=== PATIENT | male | born 1950 | race Caucasian/White ===

== ENCOUNTER → 2017-04-21 | Outpatient (CLI) | payer BC ==
[~2017-04-21] MED LIST: ASPEC325 PO; ASPI81TA28 PO; ATOR10TA82 PO; ATV/1 PO; ATV1 PO; CLB/200 PO; CLC100 PO; FEXO1TAB58 PO; MELO7.5T5 PO; METO-217 PO; MORP15TA19 PO; OXYC-57 PO; RXC5 PO; TIMO0.5S2 OP; [UNRECOGNIZED DRUG - OTHER] OPB
== END | disposition home or self-care (01) ==
LOC: C.RDSM 12:47
PROVIDERS: ATTEND Orthopaedic Surgery
DX: M25.551 Pain in right hip (principal)

== ENCOUNTER → 2017-09-03 | Outpatient (CLI) | payer BC ==
[~2017-09-03] MED LIST changes: -CLB/200 PO; -RXC5 PO
--- NOTE | 2017-09-03 14:13 | DIAGNOSTIC IMAGING REPORT ---
PELVIS 1 OR 2 VIEWS CLINICAL HISTORY: 66 years-old Male presenting with PRE OP TESTING. TECHNIQUE: Single frontal view of the pelvis was obtained. COMPARISON: None. FINDINGS/IMPRESSION: Radiodense device projects over the scrotum and pubic symphysis. Moderate to severe joint space loss of the hips bilaterally with subchondral sclerosis, osteophytosis, and minimal deformity of the femoral heads. Bony pelvis intact. Femoral necks intact. Electronically signed by: Mehran Kearney M.D. 09/03/2017 2:12 PM Dictated Date/Time: 09/03/2017 2:10 PM
== END | disposition home or self-care (01) ==
LOC: C.RDSM 14:00
PROVIDERS: ATTEND Physician Assistant
DX: Z01.818 Encounter for other preprocedural examination (principal)

== ENCOUNTER → 2017-11-23 | Outpatient (CLI) | payer BC ==
[~2017-11-23] MED LIST changes: -ASPEC325 PO; -ASPI81TA28 PO; -ATOR10TA82 PO; -ATV1 PO; +CLB/200 PO; -CLC100 PO; -MELO7.5T5 PO; -METO-217 PO; -MORP15TA19 PO; -OXYC-57 PO; +RXC5 PO; -TIMO0.5S2 OP
== END | disposition home or self-care (01) ==
LOC: C.RDSM 11:07
PROVIDERS: ATTEND Orthopaedic Surgery
DX: Z98.890 Other specified postprocedural states (principal)

== ENCOUNTER 2018-09-29 07:38 | Inpatient (IN) ==
--- NOTE | 2018-09-01 13:59 | PAT Medication Instructions ---
Medication Instructions Date of Service September 01, 2018 Home Medications fexofenadine [Cecilia Allergy] 180 mg PO QAM meloxicam 15 mg PO Q4D multivitamin 1 cap PO QAM timolol 1 drp OPHTHALMIC (EYE) QAM ASK your surgeon for instructions meloxicam 15 mg PO Q4D DO NOT take the morning of surgery fexofenadine [Cecilia Allergy] 180 mg PO QAM multivitamin 1 cap PO QAM Take morning of surgery OTHERWISE NOTHING TO EAT OR DRINK AFTER MIDNIGHT: timolol 1 drp OPHTHALMIC (EYE) QAM Other Notes If you have any questions please call us at [phone] or [phone] or [phone] or [phone]
--- NOTE | 2018-09-02 14:09 | Anesthesiology Consultation ---
Date of Service September 02, 2018 Assessment & Plan (1) Encounter for pre-operative examination: PCP CLEARANCE (LOUISA) -- 09/02/18 -- medically cleared. Cardiology 08/23 office visit -- "...history of paroxysmal atrial fibrillation. He has done great since his ablation. He only has had 3 short bursts of PAF. He has not had any prolonged episodes. He is feeling great without any restrictions... Could take a dose of flecainide if he has an episode of A. fib last more than 5 minutes... Follow-up in 1 years time if he needs it." Chart Review Chart Review: Acceptable Risk for Surgery and Patient seen in Pre Admission Testing Teaching & Discussion Instructed NPO after midnight before surgery, except medications with 15 cc of water. Medication instructions provided according to the PAT guidelines. History Surgery Operation Date: 09/29/18 08:15 Proposed Procedures p Right Total Hip Arthroplasty - Mehran Carvajal MD Height/Weight Height: 6 ft Weight: 91.5 kg Allergies Allergy/AdvReac Type Severity Reaction Status Date / Time No Known Allergies Allergy Verified 08/26/18 08:59 Medications Home Medications Medication Instructions Recorded Confirmed Last Taken fexofenadine [Cecilia Allergy] 180 mg PO QAM 08/26/18 08/26/18 Unknown lorazepam 1 mg PO HS 08/26/18 08/26/18 Unknown meloxicam 15 mg PO Q4D 08/26/18 08/26/18 Unknown multivitamin 1 cap PO QAM 08/26/18 08/26/18 Unknown timolol 1 drp OPHTHALMIC (EYE) QAM 08/26/18 08/26/18 Unknown Past Medical History Medical History Atrial fibrillation HX OF A-FIB, PT HAD A CRYOABLATION 2 YEARS AGO, [facility] History of skin cancer in adulthood S/P MOHS PROCEDURE. NO ISSUES SINCE Osteoarthritis Exercise / Class Metabolic Activity II 4-5 Yardwork/Stairs/Walk up hill (Denies CP or SOB with yardwork/stairs) Past Surgical History Surgical History Fusion of spine LUMBAR History of Mohs micrographic surgery for skin cancer History of appendectomy History of cardiac radiofrequency ablation History of cataract extraction with lens replacement B/L History of total hip arthroplasty LEFT HIP, [facility], 2018 History of total knee replacement B/L History of vitrectomy HX OF DETACHED RETINA Hx of eye surgery HX OF LASER EYE SURGERY KERATOTOMY Past Anesthesia History No Hx of Anesthesia Complications SISTER PONV S/P DAVID 09/2017: SAB SUCCESSFUL AT L2-L3 x 1 attempt History of PONV No Hx of PONV and No Hx of Motion Sickness Social History Smoking Status: Never smoker Smoking cigarettes per day: 0 Do You Dip or Chew Tobacco: No Hx Alcohol Use: Yes Alcohol Intake Frequency Comment: VERY RARE Hx Substance Use: No substance use type: does not use Review of Systems Pt denies any recent chest pain, shortness of breath, palpitations, cough, fever or URI. Physical Exam Vital Signs BP: 113/78 P: 81bpm SPO2: 96% RA T: 97.6 F R: 16 ENMT Mouth: + dental restorations (caps on front upper incisors) and + chipped teeth (minor chips in lower incisors); no loose teeth Thyromental Distance: > or= 3.5 Finger Breadths (3.5) Mallampati Class: I Neck normal visual inspection and + facial hair (short trimmed mustache); neck exte nsion not limited Respiratory normal respiratory effort Auscultation: lungs clear to auscultation bilaterally Cardiovascular Rate/Rhythm: regular rate and regular rhythm Heart Sounds: no murmur Vessels: no carotid bruit Extremities: no edema Testing Electrocardiogram Date: 09/02/18 Findings: + NSR @ (73) Laboratory Results 09/02/18 14:25 09/02/18 14:25 PT 10.9 Seconds (9.0-12.0) 09/02/18 14:25 INR 1.1 (0.9-1.1) 09/02/18 14:25 APTT 26.9 Seconds (21.0-31.0) 09/02/18 14:25 5.4 % (4.5-5.6) 09/02/18 14:25 Yellow 09/02/18 14:25 Clear (Clear) 09/02/18 14:25 6.5 (4.5-7.5) 09/02/18 14:25 Ur Specific [place] 1.017 (1.000-1.030) 09/02/18 14:25 Negative (Negative) 09/02/18 14:25 Negative (Negative) 09/02/18 14:25 Negative (Negative) 09/02/18 14:25 Negative (Negative) 09/02/18 14:25 Ur Leukocyte Esterase Negative (Negative) 09/02/18 14:25 Blood Type O Positive 09/02/18 14:25 Antibody Screen NEGATIVE 09/02/18 14:25 09/02/18 14:25 Urine Culture - Final Urine,Clean Catch No growth - less than 1,000 colonies/mL.
[2018-09-02 15:26] LABS: Appearance Urine Clear (Clear); Basophils # (auto) 0.02 K/uL (0-0.2); Basophils % (auto) 0.4 %; Bilirubin Urine Negative (Negative); Blood Urine Negative (Negative); Color Urine Yellow; Eosinophils % (auto) 3.6 %; Glucose Urine UA Negative (Negative); Hematocrit (blood only) 42.3 % (42-52); Hemoglobin 15.6 g/dL (14.0-18.0); Ketones Urine Negative (Negative); Leukocyte Esterase Urine Negative (Negative); Lymphocytes # (auto) 1.52 K/uL (1.2-3.4); Lymphocytes % (auto) 27.4 %; Mean Corpuscular Hgb Conc 36.9 g/dL (32-36); Mean Corpuscular Volume 87.4 fL (80-100); Mean Platelet Volume 11.1 fL (7.4-10.4); Monocytes % (auto) 10.8 %; Neutrophils # (auto) 3.21 K/uL (1.4-6.5); Neutrophils % (auto) 57.8 %; Nitrite Urine Negative (Negative); Platelet Count 184 K/uL (130-400); Protein Urine Negative (Negative); RDW Coefficient of Variation 12.8 % (11.5-14.5); RDW Standard Deviation 41.2 fL (36.4-46.3); Red Blood Count 4.84 M/uL (4.7-6.1); Specific Gravity Urine 1.017 (1.000-1.030); Urobilinogen Urine Negative (Negative); White Blood Count 5.55 K/uL (4.8-10.8); pH Urine 6.5 (4.5-7.5)
[2018-09-02 15:35] LABS: Albumin Level 3.6 gm/dl (3.4-5.0); BUN Creatinine Ratio 15.2 (10-20); Calcium 8.8 mg/dl (8.5-10.1); Creatinine Clr Calc Pharmacy 76.3 ml/min; Est GFR (African American) 84.9; Est GFR (Non-African American) 73.3; Potassium 4.2 mmol/L (3.5-5.1)
[2018-09-02 15:38] LABS: Albumin Globulin Ratio 1.1 (0.9-2); Bilirubin,Total 0.5 mg/dl (0.2-1); Globulin 3.3 gm/dl (2.5-4.0); Total Protein 6.9 gm/dl (6.4-8.2)
[2018-09-02 15:48] LABS: INR 1.1 (0.9-1.1); Partial Thromboplastin Time 26.9 Seconds (21.0-31.0); Prothrombin Time 10.9 Seconds (9.0-12.0)
--- NOTE | 2018-09-02 16:59 | History & Physical Report ---
Date of Service September 02, 2018 Assessment & Plan (1) Arthritis of right hip: DIAGNOSES: Right hip osteoarthritis. PROCEDURE: Right total hip arthroplasty. PLAN: The patient is scheduled to undergo this procedure with Dr. Mehran Carvajal at the [facility] as an inpatient on 09/29/18. Risks and complications of the procedure such as infection, bleeding, pain, scarring, nerve and blood vessel damage, weakness, wound problems, stiffness, incomplete relief of symptoms, heart attack, stroke, , hardware failure, loosening, wear, fracture, dislocation, leg length inequality, blood clots and embolism were explained to the patient at his visit this afternoon by Dr. Edmundo capone and informed consent to perform the procedure was obtained. We have already received cardiac clearance from the patient's mica miner. We will fax the medical clearance form to his PCP, Dr. Vincent Edwards for clearance for the surgery. The patient states that he saw his PCP 2 weeks ago. We have an up to date EKG; however, we will need a nasal swab cultured for MRSA, hemoglobin A1c, urinalysis with culture, PTT, PT/INR, CBC with diff and a comprehensive metabolic panel. The patient states that he will receive these in the next few days and have them sent to our office. The patient will be scheduled for a postoperative followup with myself on October 14. I advised him that we will provide him with a prescription for a narcotic pain medication as well as some diclofenac sodium for pain control after the surgery before being discharged. He states that he will purchase his own extra strength Tylenol and we will resume his normal daily aspirin; however, we will have him take it twice daily for DVT prophylaxis. The patient states that he has a walker at home from his previous surgeries and will bring it with him on the day of surgery. I provided him with a handicap placard to use for 6 months postoperatively. I instructed him about the use of antibiotics for dental procedures after total joint arthroplasty. I gave him some information on lectures in regards to hip and knee replacements the [facility] offers on the and Wednesday of every month. He states that he has all the equipment that comes with a hip kit from his previous hip and knee surgeries at home and will use them as instructed. The patient states that most likely he will do home health at his home for 2 weeks and then transition to outpatient physical therapy but will s peak with socially responsible investment adviser after the procedure and depending on how well he does in physical therapy while inpatient, he may consider just doing outpatient physical therapy. The patient and his verbalized understanding of all information provided during today's visit, thanks for the care that they have received and states if they have questions or concerns that should arise prior to the surgery date, they will contact the clinic accordingly. History of Present Illness Chief Complaint: CHIEF COMPLAINT: Right hip pain Primary Care Provider: Vincent Edwards HISTORY OF PRESENT ILLNESS: This 66-year-old male presents to the clinic today for his preoperative history and physical. The patient has a several-year history of bilateral hip pain which was more severe in his left hip until having a Left DAVID last September. The patient describes the Right hip pain as a sharp pain with intermittent radiation. He localizes the pain to the anterior lateral aspect of the right hip. He states that it increases with activity. He has received no relief with conservative treatment. He walks with an antalgic gait. PAST SURGICAL HISTORY: Bilateral total knee arthroplasty, Left total hip arthroplasty, lower lumbar fusion, vasectomy, appendectomy, cardiac ablation, lithotripsy, bilateral cataract removal, colonoscopy. PAST MEDICAL HISTORY: Renal calculi, anxiety, insomnia, heart disease, atrial fibrillation, myocardial infarction, cancer. FAMILY HISTORY: Heart disease, cancer, hyperlipidemia. ALLERGIES: The patient has no known drug allergies. CURRENT MEDICATIONS USED: Cecilia OTC 1 tab daily as needed, aspirin 81 mg oral tablet 1 tab daily, lorazepam 1 mg oral tablet daily, meloxicam 15 mg oral tablet every 3-4 days, and timolol eye drops, unknown dosage 1-2 drops into both eyes daily. SOCIAL HISTORY: The patient denies any history of smoking, alcohol or illicit drug use. Allergies Allergy/AdvReac Type Severity Reaction Status Date / Time No Known Allergies Allergy Verified 08/26/18 08:59 Home Medications Home Medications Medication Instructions Recorded Confirmed Type fexofenadine [Cecilia Allergy] 180 mg PO QAM 08/26/18 08/26/18 History lorazepam 1 mg PO HS 08/26/18 08/26/18 History meloxicam 15 mg PO Q4D 08/26/18 08/26/18 History multivitamin 1 cap PO QAM 08/26/18 08/26/18 History timolol 1 drp OPHTHALMIC (EYE) QAM 08/26/18 08/26/18 History Past Med/Surg History Medical History Atrial fibrillation HX OF A-FIB, PT HAD A CRYOABLATION 2 YEARS AGO, [facility] History of skin cancer in adulthood S/P MOHS PROCEDURE. NO ISSUES SINCE Osteoarthritis Surgical History Fusion of spine LUMBAR History of Mohs micrographic surgery for skin cancer History of appendectomy History of cardiac radiofrequency ablation History of cataract extraction with lens replacement B/L History of total hip arthroplasty LEFT HIP, [facility], 2018 History of total knee replacement B/L History of vitrectomy HX OF DETACHED RETINA Hx of eye surgery HX OF LASER EYE SURGERY KERATOTOMY Social History Preferred Language: Kyrgyz Communication Ability: Effective Supervisor Audit Clerks Required: No Beliefs That Will Affect Care: None Current Living Situation: Spouse Other Information That Helps Us Care for You: No Feels Safe at Home: Yes Safety Concerns: Feels Safe At This Time Smoking Status: Never smoker Cigarettes Per Day: 0 Do You Dip or Chew Tobacco: No Second Hand Exposure: No Tobacco Cessation Education Requested by Patient: No Hx Alcohol Use: Yes Hx Substance Use: No Review of Systems All systems reviewed & are unremarkable except as noted in HPI & below Physical Exam Vital Signs (Past 24 Hours): PHYSICAL EXAMINATION: Skin: The patient's skin is normal in appearance, no open skin lesions or discharge. Eyes: Pupils are equal and reactive to light and accommodation, extraocular movements are intact. Throat: Posterior oropharynx is clear with absence of edema, erythema or exudate. Cardiovascular exam: The patient has regular rate and rhythm, no murmurs or gallops appreciated. Lungs: Auscultation of lung orellana reveals clear breath sounds throughout with no wheezing, rales or rhonchi. Abdomen is nonobese, nondistended, nontender with normoactive bowel sounds. Extremities: Right hip, the patient is able to perform straight leg raise test without any pain. Log roll test is negative. Stinchfield test is negative. The patient does experience some referred pain to the anterolateral aspect of the right hip with active abduction. He has no pain with adduction. Only minimal pain with internal rotation. No pain with external rotation. DAVID test is 2-1/2 fists. The patient is neurovascularly intact in right lower extremity. He has full range of motion of his right knee. His calf is soft and supple, nontender to palpation. Neurological exam: Cranial nerves 2 through 12 are intact. No motor or sensory deficit. Psychological/general exam: The patient is alert and oriented x3 with proper grooming and hygiene. Results & Data Laboratory Results 09/02/18 09/02/18 09/02/18 Range/Units 14:25 14:25 14:25 WBC (4.8-10.8) K/uL RBC (4.7-6.1) M/uL Hgb (14.0-18.0) g/dL Hct (42-52) % MCV (80-100) fL MCH (25-34) pg MCHC (32-36) g/dL RDW Std Deviation (36.4-46.3) fL RDW Coeff of Harish (11.5-14.5) % Plt Count (130-400) K/uL MPV (7.4-10.4) fL Immature Gran % (Auto) % Neut % (Auto) % Lymph % (Auto) % Miner % (Auto) % Eos % (Auto) % Baso % (Auto) % Immature Gran # (Auto) (0.00-0.02) K/uL Neut # (Auto) (1.4-6.5) K/uL Lymph # (Auto) (1.2-3.4) K/uL Miner # (Auto) (0.11-0.59) K/uL Eos # (Auto) (0-0.5) K/uL Baso # (Auto) (0-0.2) K/uL PT (9.0-12.0) Seconds INR (0.9-1.1) APTT (21.0-31.0) Seconds PTT Ratio Sodium (136-145) mmol/L Potassium (3.5-5.1) mmol/L Chloride (98-107) mmol/L Carbon Dioxide (21-32) mmol/L Anion Gap (3-11) BUN (7-18) mg/dl Creatinine (0.6-1.4) mg/dl Est Cr Clr Drug Dosing ml/min Est GFR ( Amer) Est GFR (Non-Af Amer) BUN/Creatinine Ratio (10-20) Glucose (70-99) mg/dl Estimat Average Glucose Hemoglobin A1c Calcium (8.5-10.1) mg/dl Total Bilirubin (0.2-1) mg/dl AST (15-37) U/L ALT (12-78) U/L Alkaline Phosphatase (45-117) U/L Total Protein (6.4-8.2) gm/dl Albumin (3.4-5.0) gm/dl Globulin (2.5-4.0) gm/dl Albumin/Globulin Ratio (0.9-2) Urine Color Yellow Urine Appearance Clear (Clear) Urine pH 6.5 (4.5-7.5) Ur Specific [place] 1.017 (1.000-1.030) Urine Protein Negative (Negative) Urine Glucose (UA) Negative (Negative) Urine Ketones Negative (Negative) Urine Blood Negative (Negative) Urine Nitrite Negative (Negative) Urine Bilirubin Negative (Negative) Urine Urobilinogen Negative (Negative) Ur Leukocyte Esterase Negative (Negative) Nasal Screen MRSA (PCR) Negative (Negative) Blood Type Pending Antibody Screen Pending 09/02/18 09/02/18 09/02/18 Range/Units 14:25 14:25 14:25 WBC (4.8-10.8) K/uL RBC (4.7-6.1) M/uL Hgb (14.0-18.0) g/dL Hct (42-52) % MCV (80-100) fL MCH (25-34) pg MCHC (32-36) g/dL RDW Std Deviation (36.4-46.3) fL RDW Coeff of Harish (11.5-14.5) % Plt Count (130-400) K/uL MPV (7.4-10.4) fL Immature Gran % (Auto) % Neut % (Auto) % Lymph % (Auto) % Miner % (Auto) % Eos % (Auto) % Baso % (Auto) % Immature Gran # (Auto) (0.00-0.02) K/uL Neut # (Auto) (1.4-6.5) K/uL Lymph # (Auto) (1.2-3.4) K/uL Miner # (Auto) (0.11-0.59) K/uL Eos # (Auto) (0-0.5) K/uL Baso # (Auto) (0-0.2) K/uL PT 10.9 (9.0-12.0) Seconds INR 1.1 (0.9-1.1) APTT 26.9 (21.0-31.0) Seconds PTT Ratio 1.0 Sodium 138 (136-145) mmol/L Potassium 4.2 (3.5-5.1) mmol/L Chloride 107 (98-107) mmol/L Carbon Dioxide 28 (21-32) mmol/L Anion Gap 3.0 (3-11) BUN 16 (7-18) mg/dl Creatinine 1.06 (0.6-1.4) mg/dl Est Cr Clr Drug Dosing 76.3 ml/min Est GFR ( Amer) 84.9 Est GFR (Non-Af Amer) 73.3 BUN/Creatinine Ratio 15.2 (10-20) Glucose 88 (70-99) mg/dl Estimat Average Glucose Pending Hemoglobin A1c Pending Calcium 8.8 (8.5-10.1) mg/dl Total Bilirubin 0.5 (0.2-1) mg/dl AST 20 (15-37) U/L ALT 28 (12-78) U/L Alkaline Phosphatase 104 (45-117) U/L Total Protein 6.9 (6.4-8.2) gm/dl Albumin 3.6 (3.4-5.0) gm/dl Globulin 3.3 (2.5-4.0) gm/dl Albumin/Globulin Ratio 1.1 (0.9-2) Urine Color Urine Appearance (Clear) Urine pH (4.5-7.5) Ur Specific [place] (1.000-1.030) Urine Protein (Negative) Urine Glucose (UA) (Negative) Urine Ketones (Negative) Urine Blood (Negative) Urine Nitrite (Negative) Urine Bilirubin (Negative) Urine Urobilinogen (Negative) Ur Leukocyte Esterase (Negative) Nasal Screen MRSA (PCR) (Negative) Blood Type Antibody Screen 09/02/18 Range/Units 14:25 WBC 5.55 (4.8-10.8) K/uL RBC 4.84 (4.7-6.1) M/uL Hgb 15.6 (14.0-18.0) g/dL Hct 42.3 (42-52) % MCV 87.4 (80-100) fL MCH 32.2 (25-34) pg MCHC 36.9 H (32-36) g/dL RDW Std Deviation 41.2 (36.4-46.3) fL RDW Coeff of Harish 12.8 (11.5-14.5) % Plt Count 184 (130-400) K/uL MPV 11.1 H (7.4-10.4) fL Immature Gran % (Auto) 0.0 % Neut % (Auto) 57.8 % Lymph % (Auto) 27.4 % Miner % (Auto) 10.8 % Eos % (Auto) 3.6 % Baso % (Auto) 0.4 % Immature Gran # (Auto) 0.00 (0.00-0.02) K/uL Neut # (Auto) 3.21 (1.4-6.5) K/uL Lymph # (Auto) 1.52 (1.2-3.4) K/uL Miner # (Auto) 0.60 H (0.11-0.59) K/uL Eos # (Auto) 0.20 (0-0.5) K/uL Baso # (Auto) 0.02 (0-0.2) K/uL PT (9.0-12.0) Seconds INR (0.9-1.1) APTT (21.0-31.0) Seconds PTT Ratio Sodium (136-145) mmol/L Potassium (3.5-5.1) mmol/L Chloride (98-107) mmol/L Carbon Dioxide (21-32) mmol/L Anion Gap (3-11) BUN (7-18) mg/dl Creatinine (0.6-1.4) mg/dl Est Cr Clr Drug Dosing ml/min Est GFR ( Amer) Est GFR (Non-Af Amer) BUN/Creatinine Ratio (10-20) Glucose (70-99) mg/dl Estimat Average Glucose Hemoglobin A1c Calcium (8.5-10.1) mg/dl Total Bilirubin (0.2-1) mg/dl AST (15-37) U/L ALT (12-78) U/L Alkaline Phosphatase (45-117) U/L Total Protein (6.4-8.2) gm/dl Albumin (3.4-5.0) gm/dl Globulin (2.5-4.0) gm/dl Albumin/Globulin Ratio (0.9-2) Urine Color Urine Appearance (Clear) Urine pH (4.5-7.5) Ur Specific [place] (1.000-1.030) Urine Protein (Negative) Urine Glucose (UA) (Negative) Urine Ketones (Negative) Urine Blood (Negative) Urine Nitrite (Negative) Urine Bilirubin (Negative) Urine Urobilinogen (Negative) Ur Leukocyte Esterase (Negative) Nasal Screen MRSA (PCR) (Negative) Blood Type Antibody Screen
[2018-09-03 05:47] LABS: Estimated Average Glucose 108 mg/dl; Hemoglobin A1C 5.4 % (4.5-5.6)
[~2018-09-29 07:38] MED LIST changes: +ACETAMINOPHEN 500 MG TAB PO SCH; -ATV/1 PO; +BUPIVACAINE 0.5 % 5 MG/1 ML PF 10ML VIAL ONE; +CEFAZOLIN 2000MG 2,000 MG/15 ML SYR IV SCH; -CLB/200 PO; +CeleBREX 200 MG CAP PO SCH; +FAMOTIDINE 20 MG TAB PO SCH; -FEXO1TAB58 PO; +LR 500ML BOLUS, THEN 15ML/HR IV SCH; +LR 60ML/HR IV SCH; +METOCLOPRAMIDE HCL 10 MG TABLET PO SCH; +ROPIVACAINE 0.5% HCL/PF 150 MG, BUPIVACAINE 0.5% MPF 30 ML, EPINEPHrine 0.15 MG, Ketoro... INFIL SCH; -RXC5 PO; +SCOPOLAMINE 1.5 MG TDSY TD SCH; +TRAMADOL HCL 50 MG TABLET PO SCH; +TRANEXAMIC ACID 1,000 MG x 1 **For Topical Use TOP SCH; -[UNRECOGNIZED DRUG - OTHER] OPB; +dexAMETHasone 4 MG TAB PO SCH
[2018-09-29] MEDS ORDERED: MIDAZOLAM HCL 1 MG/ML 2ML VIAL ONE (09:42)
[2018-09-29] MEDS ORDERED: KETAMINE HCL INJ 50 MG/ML 10 ML VIAL ONE (09:43)
[2018-09-29] MEDS ORDERED: LIDOCAINE HCL 2% 2 ML VIAL/AMP(20MG/ML) INFIL ONE (09:57)
[2018-09-29] MEDS ORDERED: DEXAMETHASONE SOD INJ 4 MG/ML VIAL ONE (09:57)
[2018-09-29] MEDS ORDERED: PROPOFOL IV EMULSION 10 MG/ML 20 ML VIAL IV ONE (09:57)
[2018-09-29] MEDS ORDERED: ONDANSETRON INJ 2 MG/ML 2 ML VIAL ONE (09:57)
[2018-09-29] MEDS ORDERED: GLYCOPYRROLATE 0.2 MG/ML VIAL ONE (09:57)
--- NOTE | 2018-09-29 10:04 | History & Physical Bridge Note ---
Date of Service September 29, 2018 History & Physical Bridge Note I have examined the patient, reviewed the History & Physical and in the interval since the performance of the History & Physical I have noted the following changes of clinical significance: no changes noted
[2018-09-29] MEDS ORDERED: ORTHO JOINT ANESTHETIC ONE (10:08)
[2018-09-29] MEDS ORDERED: POVIDONE-IODINE OP SOLN 30 ML BTL ONE (10:08)
[2018-09-29] MEDS ORDERED: FLUMAZENIL 0.1 MG/1 ML 10 ML VIAL IV PRN (11:32)
[2018-09-29] MEDS ORDERED: ATROPINE SULFATE 0.1 MG/ML 10ML SYR IV PRN (11:32)
[2018-09-29] MEDS ORDERED: PROMETHAZINE HCL 12.5 MG in SODIUM CHLORIDE 0.9% 50 ML IV PRN (11:32)
[2018-09-29] MEDS ORDERED: ePHEDrine sulfate 50 MG/ML AMP IV PRN (11:32)
[2018-09-29] MEDS ORDERED: ONDANSETRON INJ 2 MG/ML 2 ML VIAL IV PRN ×2 (11:32→12:14)
[2018-09-29] MEDS ORDERED: NALOXONE HCL 0.4 MG/1 ML VIAL/CARP IV PRN ×2 (11:32→12:14)
[2018-09-29] MEDS ORDERED: HYDROmorphone INJ 1 MG/ML SYRINGE IV PRN (11:32)
[2018-09-29] MEDS ORDERED: PHENYLEPHRINE 100MCG/ML 5ML SYR ONE (12:00)
--- NOTE | 2018-09-29 12:01 | Post Operative Brief Note ---
Immediate Post Op Note v1 Date of Surgery September 29, 2018 Pre & Post Diagnosis Operation Date: 09/29/18 10:15 Pre-Op Diagnosis: Right Hip Osteoarthritis Post-Op Diagnosis: Right Hip Osteoarthritis Procedure Operation Date: 09/29/18 10:15 Actual Procedures p Right Total Hip Arthroplasty(Right) - Mehran Carvajal MD Surgeon Mehran Carvajal MD Corner Former WILLI Elliott PA-C Estimated Blood Loss 100 Findings Consistent with Post-Op Diagnosis Fluids 1700 cc Specimens Femoral head Anesthesia Type Spinal MAC Complications none Disposition Accompanied Patient To Recovery: No Disposition: Recovery Room
[2018-09-29] MEDS ORDERED: TAMSULOSIN HCL 0.4 MG CAP PO PRN (12:14)
[2018-09-29] MEDS ORDERED: ALUMINUM/MAGNESIUM SUSP 30 ML UDC PO PRN (12:14)
[2018-09-29] MEDS ORDERED: DiphenhydrAMINE HCL 50 MG/ML VIAL IV PRN (12:14)
[2018-09-29] MEDS ORDERED: MAGNESIUM HYDROXIDE SUSP 30 ML UDC PO PRN (12:14)
[2018-09-29] MEDS ORDERED: METOCLOPRAMIDE HCL INJ 5 MG/ML 2 ML VIAL IV PRN (12:14)
[2018-09-29] MEDS ORDERED: BISACODYL 10 MG SUPP PR PRN (12:14)
[2018-09-29] MEDS ORDERED: OXYCODONE HCL IR 5 MG TAB (IMMEDIATE RELEASE) PO PRN (12:14)
--- NOTE | 2018-09-29 12:14 | Operative Report ---
Post Operative Report Pre & Post Diagnosis Operation Date: 09/29/18 10:15 Pre-Op Diagnosis: Right Hip Osteoarthritis Post-Op Diagnosis: Right Hip Osteoarthritis Procedure Operation Date: 09/29/18 10:15 Actual Procedures p Right Total Hip Arthroplasty(Right) - Mehran Barrios MD Surgeon Mehran barrios MD Senior Environmental Scientist WILLI Elliott PA-C Estimated Blood Loss 100 Findings Consistent with Post-Op Diagnosis Specimens femoral head Complications none Disposition Accompanied Patient To Recovery: Yes Disposition: Recovery Room Description of Procedure I was present during the entire case assisting with wound closure and dressing application. Please see Dr. Barrios procedure note for specifics of the case. I attest to the content of the Intraoperative Record and any orders documented therein. Any exceptions are noted below.
--- NOTE | 2018-09-29 12:46 | XRay Report ---
AP PELVIS, CROSSTABLE LATERAL LEFT HIP History: Left total hip arthroplasty. Degenerative arthritis. Postop. FINDINGS: The patient is status post a left total hip arthroplasty. The hardware is intact. No fractu re or dislocation. Prior right total hip arthroplasty is noted. IMPRESSION: Left total hip arthroplasty. No evidence for hardware complication. Electronically signed by: Pedro Dempsey M.D. 09/29/2018 12:45 PM
--- NOTE | 2018-09-29 12:53 | Anesthesiology Progress Note ---
Date of Service September 29, 2018 Anesthesia Post Procedure Vital Signs Vital Signs: Temp Pulse Pulse Resp BP Pulse Ox 09/29/18 12:40 36.6 C 75 16 105/72 97 09/29/18 12:30 76 16 103/64 96 09/29/18 12:20 77 14 102/68 99 09/29/18 12:12 36.5 C 78 13 105/67 97 09/29/18 09:13 36.9 C 78 18 128/87 97 Pain Intensity Right Hip: Pain Intensity: 3 Transfer of Care Handoff Completed per policy Notes Mental Status: alert / awake / arousable Patient Amnestic to Procedure: Yes Nausea / Vomiting: adequately controlled Pain: adequately controlled Airway Patency, RR, SpO2: stable & adequate BP & HR: stable & adequate Hydration State: stable & adequate Neuraxial Anesthesia: was administered and sensory block is resolving Anesthetic Complications: no major complications apparent
[2018-09-29] MEDS: CHECK SCOPOLAMINE PATCH PLACEMENT SCH ×2 (13:28→13:30)
[2018-09-29] MEDS: SODIUM CHLORIDE 0.9% 1000ML 1,000 ML IV SCH (13:59)
[2018-09-29] MEDS: KETOROLAC TROMETHAMINE 15 MG/ML VIAL IV SCH ×2 (16:20→21:58)
[2018-09-29] MEDS: ACETAMINOPHEN 500 MG TAB PO SCH (16:20)
[2018-09-29] MEDS: CEFAZOLIN 2000MG 2,000 MG/15 ML SYR IV SCH (18:07)
[2018-09-29] MEDS ORDERED: SENNA 8.6 MG TAB PO SCH (21:00)
[2018-09-29] MEDS ORDERED: LORazepam 1 MG TAB PO SCH (21:00)
[2018-09-29] MEDS: DOCUSATE SODIUM 100 MG CAP PO SCH (21:32)
[2018-09-29] MEDS: ASPIRIN 81 MG ECTAB PO SCH (21:33)
--- NOTE | 2018-09-29 22:06 | Operative Report ---
DATE OF OPERATION: 09/29/2018 DATE OF SURGERY: 09/29/2018 PREOPERATIVE DIAGNOSIS: Right hip osteoarthritis. POSTOPERATIVE DIAGNOSIS: Right hip osteoarthritis. OPERATION PERFORMED: Right total hip arthroplasty. SURGEON: Mehran Carvajal MD RIP/MOULD OPERATOR: Katrin Elliott. ESTIMATED BLOOD LOSS: 100 mL. IV FLUIDS: 1700 mL crystalloid. SPECIMENS: Femoral head. COMPLICATIONS: None. IMPLANTS: 1. DePuy [place] size 7 high offset femoral stem. 2. DePuy Radnor Gription acetabular shell sector cup 60 mm outer diameter. 3. One 6.5 x 45 mm cancellous bone screw. 4. A 60 outer diameter and 36 mm inner diameter Ultrex polyethylene liner. 5. Biolox delta 36 mm +1.5 femoral head. INDICATIONS: Mr. Logan is a 68-year-old gentleman who is status post a left total hip arthroplasty with an excellent result. He has right hip osteoarthritis that has been refractory to conservative management. X-rays show bone on bone arthritis. I had a long discussion with him about the risks and benefits of surgery, alternatives to surgery and expected outcomes. After reviewing all these, he elected to proceed with surgery. All questions were answered. Informed consent was signed. OPERATIVE FINDINGS: Degenerative osteoarthritis of the right hip. A ceramic on polyethylene bearing was used with components almost exactly the same as his other side. DESCRIPTION OF OPERATION: The patient was identified in the preoperative holding area where surgical site was marked. He was given a spinal anesthetic and brought back to the main operating room where he was placed on the operating room table and moved in the lateral decubitus position. Axillary roll was placed. All bony prominences were padded. Perioperative antibiotics were administered. He was prepped and draped in normal sterile fashion. Prior to incision, a multidisciplinary timeout was called. All in the room were in agreement. We began by checking his leg lengths. He is just a little bit longer on the operative side compared with the other side. We then made a 14 cm long incision for a posterior approach of the hip. We dissected down through subcutaneous tissues to the level of fascia. The fascia was incised in line with the incision. Charnley bow was placed. Trochanteric bursa was excised. The quadratus femoris and short external rotators were dissected off the posterior aspect of the hip. We then made a box cut in the capsule. The femoral head was dislocated. The femoral neck cut was made at 10 mm, which was our preoperative template and what he had on his other side. The acetabulum was then exposed. The patient had significant medial osteophytes. We removed as much of the cotyloid fossa was visible to guide our reaming. We then began reaming with a size 52 mm reamer. This was used to medialize this cup. We then reamed up by twos up to a size 56. We then reamed by ones and got all the way to a size 60 at which point we had excellent cancellous bleeding bone peripherally. We then irrigated out the acetabulum. The 60 mm outer diameter Gription cup was opened up and was impacted into position with 25 degrees of anteversion and 45 degrees of lateral opening. Single cancellous screw was placed up into the ilium. Excellent fixation was obtained. Next, the posterior inferior osteophyte was excised using a rongeur and as well as osteotome and mallet. We then exposed the femoral neck. The anterior capsule was released off of the femoral neck cut. We then removed his lateral capsule as well. A cookie cutter was used to remove the lateral neck bone. The intramedullary guide was used followed by the lateralizing reamer. We reamed them up all the way to the size 7, which was the same size he had in his contralateral side. We then broached them all the way up to a size 7, which had excellent torsional stability and sat at the level of our femoral neck cut. Next, we began trialing. We initially trialled with a +5 head; however, this left his leg lengths a little bit longer on the right than the left. We then downsized him to a +1.5. He had symmetric leg lengths with this offset head as well as excellent stability with normal shuck test. No impingement in external rotation and extension, stable in the sleeper position and at 90 degrees of hip flexion, he could be internally rotated 35 degrees before leaving out of the socket. At this point, the hip was again dislocated and the trial components were removed. The real size 7 high offset [place] stem was opened up and was impacted down into position. It sat about 1 mm proud compared with the broach. Therefore, we opened up the +1.5 mm ceramic 36 mm outer diameter head. This was impacted on the trunnion, which had been cleaned and dried. We then atraumatically reduced the hip. We then began to close. Dilute Betadine solution was used to irrigate out the wound and sit for 3 minutes. We then injected our periarticular cocktail into the pericapsular tissues as well as into the subcutaneous tissues. The Betadine was removed and the hip was irrigated with normal saline. Tranexamic acid was used to coat the wound for postoperative hemostasis. We then closed the fascia with a running looped #1 PDS. Subcutaneous layer was closed with a running #1 PDS. The deep dermis was closed with 2-0 Vicryl. A ZipLine was used for the skin. Silverlon was placed for sterile dressing. The patient was then carefully moved on to the hospital bed. Sedation was lifted and he was transferred to the recovery room in stable condition. POSTOPERATIVE COURSE: The patient will be admitted overnight for pain control and monitoring. He will be on aspirin for DVT prophylaxis. He will follow posterior hip precautions. X-rays are pending in the recovery room. I attest to the content of the Intraoperative Record and any orders documented therein. Any exception s are noted below.
[2018-09-30] MEDS: ACETAMINOPHEN 500 MG TAB PO SCH ×2 (00:26→08:00)
[2018-09-30] MEDS: SODIUM CHLORIDE 0.9% 1000ML 1,000 ML IV SCH (01:11)
[2018-09-30] MEDS: CEFAZOLIN 2000MG 2,000 MG/15 ML SYR IV SCH (02:45)
[2018-09-30] MEDS: KETOROLAC TROMETHAMINE 15 MG/ML VIAL IV SCH ×2 (03:05→10:16)
[2018-09-30 06:12] LABS: Hematocrit (blood only) 37.2 % (42-52); Hemoglobin 12.9 g/dL (14.0-18.0); Immature Granulocytes # (auto) 0.03 K/uL (0.00-0.02); Immature Granulocytes % (auto) 0.2 %; Lymphocytes # (auto) 1.03 K/uL (1.2-3.4); Lymphocytes % (auto) 6.7 %; Mean Corpuscular Hgb Conc 34.7 g/dL (32-36); Mean Corpuscular Volume 87.3 fL (80-100); Mean Platelet Volume 10.7 fL (7.4-10.4); Monocytes # (auto) 1.02 K/uL (0.11-0.59); Monocytes % (auto) 6.6 %; Neutrophils # (auto) 13.38 K/uL (1.4-6.5); Neutrophils % (auto) 86.5 %; Platelet Count 153 K/uL (130-400); RDW Coefficient of Variation 12.6 % (11.5-14.5); RDW Standard Deviation 40.3 fL (36.4-46.3); Red Blood Count 4.26 M/uL (4.7-6.1); White Blood Count 15.46 K/uL (4.8-10.8)
[2018-09-30 06:52] LABS: Calcium 8.6 mg/dl (8.5-10.1); Creatinine Clr Calc Pharmacy 79.8 ml/min; Est GFR (African American) 90.5; Est GFR (Non-African American) 78.1
--- NOTE | 2018-09-30 07:51 | Anesthesiology Progress Note ---
Date of Service September 30, 2018 Anesthesia Post Procedure Vital Signs Vital Signs: Temp Pulse Pulse Resp BP Pulse Ox 09/30/18 06:57 36.4 C L 84 18 128/82 97 09/30/18 03:20 36.5 C 75 14 120/75 97 09/29/18 23:07 36.4 C L 82 14 104/66 97 09/29/18 21:31 100/62 09/29/18 19:36 36.5 C 81 16 100/63 98 09/29/18 16:06 36.4 C L 74 17 122/79 96 09/29/18 15:03 36.4 C L 77 17 161/95 H 98 09/29/18 14:00 36.4 C L 75 16 124/74 95 09/29/18 13:30 72 16 114/76 97 09/29/18 13:00 36.5 C 77 16 104/68 98 09/29/18 12:50 75 16 109/71 96 09/29/18 12:40 36.6 C 75 16 105/72 97 09/29/18 12:30 76 16 103/64 96 09/29/18 12:20 77 14 102/68 99 09/29/18 12:12 36.5 C 78 13 105/67 97 09/29/18 09:13 36.9 C 78 18 128/87 97 Pain Intensity Right Hip: Pain Intensity: 3 Notes Mental Status: alert / awake / arousable and participated in evaluation Patient Amnestic to Procedure: Yes Nausea / Vomiting: adequately controlled Pain: adequately controlled Airway Patency, RR, SpO2: stable & adequate BP & HR: stable & adequate Hydration State: stable & adequate Neuraxial Anesthesia: was administered and sensory block resolved Anesthetic Complications: no major complications apparent and Pt Satisfied with anesthetic care
[2018-09-30] MEDS ORDERED: dexAMETHasone 4 MG TAB PO SCH (08:00)
[2018-09-30] MEDS: ASPIRIN 81 MG ECTAB PO SCH (08:00)
[2018-09-30] MEDS: DOCUSATE SODIUM 100 MG CAP PO SCH (08:00)
[2018-09-30] MEDS ORDERED: FEXOFENADINE HCL 180 MG TAB PO SCH (09:00)
[2018-09-30] MEDS ORDERED: ASPIRIN 81 MG ECTAB PO SCH (09:00)
[2018-09-30] MEDS ORDERED: NON-FORMULARY MEDICATION (Multivitamin 1 CAP) PO SCH (09:00)
[2018-09-30] MEDS ORDERED: MULTIVITAMIN TAB PO SCH (09:00)
[2018-09-30] MEDS ORDERED: TIMOLOL MALEATE 0.5% OP SOLN 5 ML BTL OP SCH (09:00)
--- NOTE | 2018-09-30 11:03 | Orthopedic Progress Note ---
Date of Service September 30, 2018 Assessment & Plan (1) S/P total hip arthroplasty: Discharge home with in home therapy Total hip precautions Abductor pillow use x 6 wks Ice with EZ wrap DVT prophy with TEDs and Aspirin Pain control with PO meds WBAT with walker assistance F/u at [facility] as previously scheduled. Supervising Physician Co-Signing Physician Notes I saw and examined the patient. Agree with note. Subjective 68 yo M day 1 s/p Right total hip arthroplasty. Doing well. No problems with PT/OT this AM. Denies hip pain, CP, SOB, nausea, vomiting, fever, chills, sweats, or weakness. Ready to be discharged to home. Review of Systems Review of Systems: All systems reviewed & are unremarkable except as noted in HPI & below Physical Exam Physical Exam: Right hip: dressing has small amount of blood but otherwise dry and intact. Able to easily perform SLRT. No pain with light internal or external rotation. Able to depict light sensation to touch circumfrentially around dressing. Calf soft and supple. NV intact Results & Data Vital Signs (Past 12 Hours) Vital Signs Temp Pulse Resp BP Pulse Ox 09/30/18 06:57 36.4 C L 84 18 128/82 97 09/30/18 03:20 36.5 C 75 14 120/75 97 09/29/18 23:07 36.4 C L 82 14 104/66 97 Laboratory Results 09/30/18 09/30/18 Range/Units 05:51 05:51 WBC 15.46 H (4.8-10.8) K/uL RBC 4.26 L (4.7-6.1) M/uL Hgb 12.9 L (14.0-18.0) g/dL Hct 37.2 L (42-52) % MCV 87.3 (80-100) fL MCH 30.3 (25-34) pg MCHC 34.7 (32-36) g/dL RDW Std Deviation 40.3 (36.4-46.3) fL RDW Coeff of Harish 12.6 (11.5-14.5) % Plt Count 153 (130-400) K/uL MPV 10.7 H (7.4-10.4) fL Immature Gran % (Auto) 0.2 % Neut % (Auto) 86.5 % Lymph % (Auto) 6.7 % [place] % (Auto) 6.6 % Eos % (Auto) 0.0 % Baso % (Auto) 0.0 % Immature Gran # (Auto) 0.03 H (0.00-0.02) K/uL Neut # (Auto) 13.38 H (1.4-6.5) K/uL Lymph # (Auto) 1.03 L (1.2-3.4) K/uL [place] # (Auto) 1.02 H (0.11-0.59) K/uL Eos # (Auto) 0.00 (0-0.5) K/uL Baso # (Auto) 0.00 (0-0.2) K/uL Sodium 142 (136-145) mmol/L Potassium 4.0 (3.5-5.1) mmol/L Chloride 109 H (98-107) mmol/L Carbon Dioxide 27 (21-32) mmol/L Anion Gap 6.0 (3-11) BUN 19 H (7-18) mg/dl Creatinine 1.00 (0.6-1.4) mg/dl Est Cr Clr Drug Dosing 79.8 ml/min Est GFR ( Amer) 90.5 Est GFR (Non-Af Amer) 78.1 BUN/Creatinine Ratio 19.0 (10-20) Glucose 116 H (70-99) mg/dl Calcium 8.6 (8.5-10.1) mg/dl
--- NOTE | 2018-09-30 12:13 | Discharge Summary ---
Date of Service September 30, 2018 Admission HPI Per Admitting Provider HISTORY OF PRESENT ILLNESS: This 66-year-old male presents to the clinic today for his preoperative history and physical. The patient has a several-year history of bilateral hip pain which was more severe in his left hip until having a Left DAVID last September. The patient describes the Right hip pain as a sharp pain with intermittent radiation. He localizes the pain to the anterior lateral aspect of the right hip. He states that it increases with activity. He has received no relief with conservative treatment. He walks with an antalgic gait. PAST SURGICAL HISTORY: Bilateral total knee arthroplasty, Left total hip arthroplasty, lower lumbar fusion, vasectomy, appendectomy, cardiac ablation, lithotripsy, bilateral cataract removal, colonoscopy. PAST MEDICAL HISTORY: Renal calculi, anxiety, insomnia, heart disease, atrial fibrillation, myocardial infarction, cancer. FAMILY HISTORY: Heart disease, cancer, hyperlipidemia. ALLERGIES: The patient has no known drug allergies. CURRENT MEDICATIONS USED: Cecilia OTC 1 tab daily as needed, aspirin 81 mg oral tablet 1 tab daily, lorazepam 1 mg oral tablet daily, meloxicam 15 mg oral tablet every 3-4 days, and timolol eye drops, unknown dosage 1-2 drops into both eyes daily. SOCIAL HISTORY: The patient denies any history of smoking, alcohol or illicit drug use. Admission Exam Per Admitting Provider PHYSICAL EXAMINATION: Skin: The patient's skin is normal in appearance, no open skin lesions or discharge. Eyes: Pupils are equal and reactive to light and accommodation, extraocular movements are intact. Throat: Posterior oropharynx is clear with absence of edema, erythema or exudate. Cardiovascular exam: The patient has regular rate and rhythm, no murmurs or gallops appreciated. Lungs: Auscultation of lung orellana reveals clear breath sounds throughout with no wheezing, rales or rhonchi. Abdomen is nonobese, nondistended, nontender with normoactive bowel sounds. Extremities: Right hip, the patient is able to perform straight leg raise test without any pain. Log roll test is negative. Stinchfield test is negative. The patient does experience some referred pain to the anterolateral aspect of the right hip with active abduction. He has no pain with adduction. Only minimal pain with internal rotation. No pain with external rotation. DAVID test is 2-1/2 fists. The patient is neurovascularly intact in right lower extremity. He has full range of motion of his right knee. His calf is soft and supple, nontender to palpation. Neurological exam: Cranial nerves 2 through 12 are intact. No motor or sensory deficit. Psychological/general exam: The patient is alert and oriented x3 with proper grooming and hygiene. Principal Diagnosis Right hip osteoarthritis Discharge Exam Right hip: dressing has small amount of blood but otherwise dry and intact. Able to easily perform SLRT. No pain with light internal or external rotation. Able to depict light sensation to touch circumfrentially around dressing. Calf soft and supple. NV intact Discharge Data Allergies Allergy/AdvReac Type Severity Reaction Status Date / Time No Known Allergies Allergy Verified 09/29/18 09:07 Consultations 09/30/18 08:00 Consult Case Management - Discharge Planning Routine Procedures Performed Operation Date: 09/29/18 10:15 Actual Procedures p Right Total Hip Arthroplasty(Right) - Mehran Carvajal MD Ordered Studies 09/30/18 09/30/18 Range/Units 05:51 05:51 WBC 15.46 H (4.8-10.8) K/uL RBC 4.26 L (4.7-6.1) M/uL Hgb 12.9 L (14.0-18.0) g/dL Hct 37.2 L (42-52) % MCV 87.3 (80-100) fL MCH 30.3 (25-34) pg MCHC 34.7 (32-36) g/dL RDW Std Deviation 40.3 (36.4-46.3) fL RDW Coeff of Harish 12.6 (11.5-14.5) % Plt Count 153 (130-400) K/uL MPV 10.7 H (7.4-10.4) fL Immature Gran % (Auto) 0.2 % Neut % (Auto) 86.5 % Lymph % (Auto) 6.7 % [place] % (Auto) 6.6 % Eos % (Auto) 0.0 % Baso % (Auto) 0.0 % Immature Gran # (Auto) 0.03 H (0.00-0.02) K/uL Neut # (Auto) 13.38 H (1.4-6.5) K/uL Lymph # (Auto) 1.03 L (1.2-3.4) K/uL [place] # (Auto) 1.02 H (0.11-0.59) K/uL Eos # (Auto) 0.00 (0-0.5) K/uL Baso # (Auto) 0.00 (0-0.2) K/uL Sodium 142 (136-145) mmol/L Potassium 4.0 (3.5-5.1) mmol/L Chloride 109 H (98-107) mmol/L Carbon Dioxide 27 (21-32) mmol/L Anion Gap 6.0 (3-11) BUN 19 H (7-18) mg/dl Creatinine 1.00 (0.6-1.4) mg/dl Est Cr Clr Drug Dosing 79.8 ml/min Est GFR ( Amer) 90.5 Est GFR (Non-Af Amer) 78.1 BUN/Creatinine Ratio 19.0 (10-20) Glucose 116 H (70-99) mg/dl Calcium 8.6 (8.5-10.1) mg/dl Hospital Course (1) S/P total hip arthroplasty: Patient had uneventful overnight stay. Did well in PT/OT this AM. Has no complaint and is ready to be discharged home. Discharge home with in home therapy Total hip precautions Abductor pillow use x 6 wks Ice with EZ wrap DVT prophy with TEDs and Aspirin Pain control with PO meds WBAT with walker assistance F/u at [facility] as previously scheduled. Total Time Total Time Spent Total Time Spent (In Minutes): 25 Total Time Includes: Examination of the Patient, Discharge Planning and Medication Reconciliation Discharge Plan Discharge Items Patient Disposition: Home - Home Health Services Reason For Visit: Right Hip Osteoarthritis Discharge Diagnosis: Right hip osteoarthritis Discharge Goals: Decrease discomfort, Improve function and Increase independence Activity: As commented below Lifting: None Bathing: Keep incision dry Bathing Comment: May shower tomorrow Sexual Activity: Wait until after follow-up appointment Exercise/Sports: Wait until after follow-up appointment Driving/Machine Use Comment: No driving until cleared by certified coding specialist Weightbearing Comment: as tolerated with walker assistance Non-emergency contact: Primary Care Provider Call non-emergency contact if: you have any medication questions, your pain is not controlled, your temperature is above 101.5, your wound has increased drainage and your wound pain has increased Follow-up/Referrals: Vincent Edwards DO [Primary Care Provider] - Diet: Regular Addtl Provider Instructions: Post-operative Instructions Dear Patient and Family/Friends, Before you are discharged from the hospital, it is important to know what to expect when you get home after surgery. To that end, we have created this sheet of discharge instructions which covers many commonly asked questions. Make sure you go through this sheet in its entirety with your nurse before you are discharged. Please note that we will go over the specifics of your surgery and recovery when you return for your first post-operative visit. Sincerely, Dr. Carvajal Medications You will be discharged on an opoid pain medication (Oxycodone 5mg) that may be taken 1-2 tabs by mouth every 4-6 hrs as needed for pain. 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 This medicine is for pain control and inflammation relief. You should take 1 tab after breakfast and one after dinner for 30 days post operatively. I recommend that you purchase over the counter extra strength Tylenol to be taken with every other dose of the Oxycodone. Once the Oxy is finished you should take the Tylenol every 6-8 hours as needed for pain relief for up to 30 days post operatively. Also increase your daily Aspirin 81 mg to twice daily for 30 days post op. If you have any questions be sure to contact the clinic. The # . Pain Expect to be in a fair amount of pain after surgery. Remember, our goal is not to eliminate your pain, but to make it tolerable. It is a good idea to stay ahead of your pain by taking the medications you were prescribed once you get home. Typically, the pain starts improving 3-7 days after surgery. You should start weaning off the narcotic pain medication (oxycodone, hydrocodone, hydromorphone, morphine) as soon as your pain improves. Please call our office if your pain is not adequately controlled. Ice Ice your operative site at least 5 times a day for 15-30 minutes at a time. Make sure you have a thin cloth between the ice or cooling unit and your skin to prevent garcia bite. This is especially important if you received a nerve block. Continue icing your operative site for the first 5-7 days after surgery, then as needed. Diet/Nausea/Vomiting Start by drinking clear liquids and eating crackers. If you can tolerate this, then you may resume your normal diet. If you feel nauseated or vomit, take Z ofran/ondansetron (if prescribed). Please call our office if you have intractable nausea or vomiting, or, if after hours, you may go to the Emergency Room for help. Constipation Constipation is a common side effect of narcotic pain medication. If you have not had a bowel movement within 2 days after surgery, we recommend purchasing an over the counter laxative such as Milk of Magnesia, Dulcolax, or Miralax from a local pharmacy, and taking it as instructed. Call our clinic if any questions. Nerve block The anesthesia team sometimes places a nerve block to help with post-operative pain control. This results in significant numbness and inability to move the extremity. The nerve block usually wears off in 8-12 hours, but sometimes can last up to 24 hours. Please call our office if you are still unable to move your extremity after 24 hours, unless you received a pain pump to take home. Nerve blocks typically wear off quickly, so start taking pain medication as soon as you start feeling soreness near your surgical site. Weight bearing and Range of Motion. Do not bear any weight through your operative extremity immediately after surgery. If you had upper extremity surgery, do not lift anything with that arm. If you are in a knee brace, keep it locked in place until your follow-up. We will discuss your weight bearing, range of motion, and lifting restrictions in detail at your first post-operative appointment. Continuous Passive Motion (CPM) Machine If you were prescribed a CPM machine, it will start after your first post- operative appointment, at which time we will give you instructions on the range of motion settings and duration of treatment Physical therapy You will be given a prescription for physical therapy or occupational therapy at your first post-operative appointment. Typically, patients start therapy within 1 week of surgery Wound care and showering We will inspect your wound at your first post-operative visit, and may do a dressing change at that time. Most patients will be in a water-proof dressing that is removed 14 days after surgery. It is normal to see some dried blood on the dressing. Do not remove your dressing, paper strips or sutures yourself unless you are given permission. Showering is allowed the day after surgery. Do not scrub or remove any dressings. The wound should not be submerged underwater (i.e. in a bathtub or pool) until 4 weeks after surgery NICOLE stockings If you were given white stockings, these are to be worn at all times except to shower (on both legs) for the first 2 weeks after surgery. Driving You may not drive while taking narcotic pain medication or while in a cast, splint, sling or brace. You, the patient, need to make the final determination about when you are safe to drive, however, the earliest you may consider driving after surgery is below: Hand/Wrist/Elbow Surgery: 3 days Shoulder Surgery: 2 weeks Hip,/Knee/Ankle Surgery: 4 weeks Fracture repair: 6 weeks Return to Work Your return to work depends on what surgery was done and what type of work you do. Please bring any paperwork your employer needs completed to your first post-operative visit. Also, bring a description of your job duties, as this helps us to understand what risks you may face at work. Travel Avoid long distance travel (greater than 1 hour) in airplanes and cars for the first 6 weeks after surgery. If you must travel, you need to have a Doppler ultrasound done before you travel to rule out a blood clot in your legs. Follow-up You should have a follow-up appointment already scheduled 1-2 days after surgery. If not, please contact our office to make this appointment before you leave the hospital. When to call the office It is normal to have swelling and bruising in the limb that was operated on. This will improve with time. It is also normal to have fevers for the first 2 days after surgery. Reasons you should call your doctor include: Uncontrolled pain; Nausea, vomiting, or constipation that does not improve with medication; Fevers over 101.5, chills, sweats; Drainage or bleeding from the wound; Foul odor; Spreading areas of redness; Any other concerns Prescriptions: New diclofenac sodium 75 mg tablet,delayed release (DR/EC) 75 mg PO BID 30 Days Qty: 60 RF: 1 oxycodone 5 mg tablet 5 mg PO .q4-6 h MDD May take 1-2 tabs Qty: 30 RF: 0 Continued meloxicam 15 mg Tablet 15 mg PO Q4D RF: 0 fexofenadine [Cecilia Allergy] 180 mg Tablet 180 mg PO QAM RF: 0 timolol 0.5 % Drops 1 drp OPHTHALMIC (EYE) QAM RF: 0 lorazepam 1 mg Tablet 1 mg PO HS RF: 0 multivitamin Capsule 1 cap PO QAM RF: 0 Changed aspirin [Aspirin Low Dose] 81 mg Tablet,Delayed Release (Dr/Ec) 81 mg PO BID 30 Days Qty: 0 RF: 0 Stand-Alone Forms: [facility], Opioid Pain Management Discharge Orders: Discharge Order (Routine); Ordered 09/30/18 Ordered By: Sang Elliott Admission Data Admit Date/Time: 09/29/18 12:14 Attending Provider: Mehran Carvajal Admit Provider: Mehran Carvajal Primary Care Provider: Vincent Edwards Service: Surgical Services Other Interventions: Discharge Summary Assessment (RN) Last Done: 09/30/18 11:03 Pending Studies at Discharge: No
[2018-09-30] MEDS ORDERED: CeleBREX 200 MG CAP PO SCH (21:00)
== END 2018-09-30 12:50 | disposition home health service (06) | DRG 470 ==
LOC: PAT 07:38 → 3E 12:14